=== PATIENT | male | born 1940 | race Caucasian/White ===

== ENCOUNTER 2024-07-06 10:00 | Day surgery (SDC) | payer OTHER ==
[2024-07-06] MEDS: LEUPROLIDE ACETATE (ELIGARD) 22.5 MG SYRINGE SQ ONE (10:28)
[2024-07-06 13:11] VITALS: BP 127/96; PULSE 89; RESP 20; TEMP 97.4
== END 2024-07-06 10:45 | disposition home or self-care (01) ==
LOC: JONCCHEMO 10:00 → J7W 10:04 → JONCCHEMO 10:45
PROVIDERS: ATTEND Internal Medicine Hematology & Oncology
DX: Z51.11 Encounter for antineoplastic chemotherapy (principal); C61 Malignant neoplasm of prostate
CPT/HCPCS: 96402; J9217

== ENCOUNTER 2024-10-05 10:09 | Day surgery (SDC) | payer OTHER ==
[2024-10-05] MEDS: LEUPROLIDE ACETATE (ELIGARD) 22.5 MG SYRINGE SQ ONE (10:17)
[2024-10-05 16:06] VITALS: BP 125/86; PULSE 83; RESP 20; TEMP 97.7
== END 2024-10-05 10:30 | disposition home or self-care (01) ==
LOC: JONCCHEMO 10:09 → J7W 10:10 → JONCCHEMO 10:30
PROVIDERS: ATTEND Internal Medicine Hematology & Oncology
PROC: 3E013GC Introduction of Other Therapeutic Substance into Subcutaneous Tissue, Percutaneous Approach (ICD-10-PCS; principal; 2024-10-05)
DX: C61 Malignant neoplasm of prostate (principal)
CPT/HCPCS: 96372; J9217

== ENCOUNTER 2025-01-03 09:30 | Day surgery (SDC) | payer OTHER ==
[2025-01-03] MEDS: LEUPROLIDE ACETATE (ELIGARD) 22.5 MG SYRINGE SQ ONE (10:19)
[2025-01-03 11:00] VITALS: BP 105/77; PULSE 96; RESP 18; TEMP 97.3
== END 2025-01-03 10:35 | disposition home or self-care (01) ==
LOC: JONCCHEMO 09:30 → J7W 09:31 → JONCCHEMO 10:35
PROVIDERS: ATTEND Internal Medicine Hematology & Oncology
DX: Z51.11 Encounter for antineoplastic chemotherapy (principal); C61 Malignant neoplasm of prostate
CPT/HCPCS: 96402; J9217